=== PATIENT | male | born 1955 | race African-American/Black ===

== ENCOUNTER → 2018-08-31 | Outpatient (CLI) | payer BC | LOC: COL.RAD 07:50 | DX: N18.3 Chronic kidney disease, stage 3 (moderate) (principal) ==

== ENCOUNTER → 2020-05-03 | Outpatient (CLI) | payer BC | LOC: COL.RAD 05-02 08:00 | DX: K57.30 Diverticulosis of large intestine without perforation or abscess without bleeding (principal) | CPT/HCPCS: Q9967 ==

== ENCOUNTER → 2021-07-05 | Outpatient (CLI) | payer BC ==
[2021-07-05 08:43] LABS: CREATININE, serum 1.67 mg/dL (0.72-1.25); URIC ACID 3.7 mg/dL (3.5-7.2)
== END ==
LOC: COL.LAB 08:00
PROVIDERS: Internal Medicine Nephrology
DX: N18.2 Chronic kidney disease, stage 2 (mild) (principal)

== ENCOUNTER → 2021-08-05 | Outpatient (CLI) | payer BC ==
[2021-08-05 11:32] LABS: CREATININE, serum 1.98 mg/dL (0.72-1.25)
[2021-08-05 11:33] LABS: PROTEIN, TOTAL URINE random 153 mg/dL; URINE TOTAL VOLUME - 24 HRS 2075 mL/24 hr
== END ==
LOC: COL.LAB 10:29
PROVIDERS: Internal Medicine Nephrology
DX: N18.2 Chronic kidney disease, stage 2 (mild) (principal)

== ENCOUNTER → 2022-07-11 | Outpatient (CLI) | payer BC ==
[2022-07-11 09:04] LABS: ALBUMIN 3.6 gm/dL (3.4-4.8); CALCIUM 9.6 mg/dL (8.4-10.2); CREATININE, serum 1.96 mg/dL (0.72-1.25); PHOSPHOROUS 3.1 mg/dL (2.3-4.7); POTASSIUM 4.6 mmol/L (3.5-4.5)
== END ==
LOC: COL.LAB 08:22
PROVIDERS: Internal Medicine Nephrology
DX: I10 Essential (primary) hypertension (principal); R80.8 Other proteinuria; N18.30 Chronic kidney disease, stage 3 unspecified

== ENCOUNTER → 2023-01-13 | Outpatient (CLI) | payer BC ==
[2023-01-13 09:19] LABS: ALBUMIN 3.7 gm/dL (3.4-4.8); CALCIUM 9.2 mg/dL (8.4-10.2); CREATININE, serum 2.12 mg/dL (0.72-1.25); POTASSIUM 4.4 mmol/L (3.5-4.5)
== END ==
LOC: COL.LAB 08:17
PROVIDERS: Internal Medicine Nephrology
DX: N18.2 Chronic kidney disease, stage 2 (mild) (principal); R80.8 Other proteinuria